=== PATIENT | male | born 1960 | race Caucasian/White ===

== ENCOUNTER 2020-02-18 03:13 | Inpatient (IN) | payer MEDICAID, OTHER ==
[~2020-02-18] VITALS: Ht 170.2 cm; Wt 80.8 kg
[~2020-02-18 03:13] MED LIST: ALBU8.5H4; AMLO2.5T2; ASPI-605 PO; ATOR10TA; CARV3.12; CLOP75TA15; FURO-145; NITR1OIN2
--- NOTE | 2020-02-18 03:28 | NUR ---
PT WAS ONESIMO 39 FROM [facility] FOR EVALUATION OF LOW O2 SATURATION FOR THE PAST TWO HOURS. PT FOUND W/ O2 SAT OF LOW 802 ON R/A, WAS PLACED ON A NON BREATHER MASK. PT ALERT AND VERBALLY RESPONSIVE TO QUESTIONS, HOWEVER SEEMS VERY LETHARGIC. W/ PMH OF ESRD ON HD TWICE A WEEK ON MONDAYSA Fridays VIA RC[facility] CATH. PT HAS REC'D HIS HD TODAY. PER EMS PT HAS TESTED + FOR COVID 19 AT THE FACILITY YESTERDAY. PT WAS TRANSFERRED TO BED 7, ON MONITOR AND SUPPLEMENTAL O2 VIA NON REBREATHER MASK. WILL CONT TO MONITOR,
[2020-02-18 03:56] LABS: BASOPHILS % (AUTO) 0.5 % (0.0-2.0); EOSINOPHILS % (AUTO) 0.2 % (0.0-6.0); HEMATOCRIT 22 % (39-51); LYMPHOCYTES # (AUTO) 0.7 /CMM (0.8-4.8); LYMPHOCYTES % (AUTO) 28.6 % (20.0-44.0); MEAN CORPUSCULAR HGB CONC 31 g/dl (31.0-36.0); MEAN CORPUSCULAR VOLUME 96 fL (80-96); MONOCYTES # (AUTO) 0.4 /CMM (0.1-1.30); MONOCYTES % (AUTO) 14.7 % (2.0-12.0); NEUTROPHILS # (AUTO) 1.4 /CMM (1.8-8.9); PLATELET COUNT (AUTO) 154 /CMM (150-450); RED BLOOD CELL COUNT(AUTO) 2.26 MIL/uL (4.5-6.0); WHITE BLOOD COUNT (AUTO) 2.4 K/uL (4.3-11.0)
--- NOTE | 2020-02-18 04:00 | NUR ---
pt aneuric, pt noted with elevated BNP. [facility] central service supply distributor aware. pt will have dialysis today.
[2020-02-18 04:02] LABS: CALCIUM, SERUM 8.1 mg/dL (8.5-10.1); CARBON DIOXIDE 29 mmol/L (21-32); CHLORIDE 104 mmol/L (98-107); CREATININE 2.5 mg/dL (0.6-1.3); GLUCOSE 160 mg/dL (74-106); SODIUM SERUM 141 mmol/L (136-145); UREA NITROGEN, BLOOD 31 mg/dL (7-18)
[2020-02-18] MEDS ORDERED: CARV12.5 PO (04:06)
[2020-02-18] MEDS ORDERED: FLUT1BLS IH (04:06)
[2020-02-18] MEDS ORDERED: LUBI24CA5 PO (04:06)
[2020-02-18] MEDS ORDERED: CALC-494 PO (04:06)
[2020-02-18] MEDS ORDERED: RANO10003 PO (04:07)
[2020-02-18] MEDS ORDERED: HYDR-4077 PO (04:07)
[2020-02-18] MEDS ORDERED: INSU100V7 SQ (04:07)
[2020-02-18] MEDS ORDERED: FERR325T28 PO (04:07)
[2020-02-18] MEDS ORDERED: OMEG1CAP74 PO (04:07)
[2020-02-18] MEDS ORDERED: PREG75CA PO (04:07)
[2020-02-18] MEDS ORDERED: FOLI0.8T41 PO (04:07)
[2020-02-18] MEDS ORDERED: ISOS20TA8 PO (04:07)
[2020-02-18] MEDS ORDERED: INSU100V42 SQ (04:07)
[2020-02-18] MEDS ORDERED: FOLI5VIA2 PO (04:07)
[2020-02-18] MEDS ORDERED: ATOR10TA PO (04:07)
[2020-02-18] MEDS ORDERED: EPOE1VIA7 SQ (04:07)
[2020-02-18 04:15] LABS: ALANINE AMINOTRANSFERASE 13 U/L (12-78); ALBUMIN 2.2 g/dL (3.4-5.0); ALKALINE PHOSPHATASE 99 U/L (46-116); ASPARTATE AMINOTRANSFERASE 18 U/L (15-37); BILIRUBIN,DIRECT 0.1 mg/dL (0.0-0.2); BILIRUBIN,TOTAL 0.3 mg/dL (0.2-1.0); TOTAL PROTEIN, SERUM 6.2 g/dL (6.4-8.2)
[2020-02-18 04:49] LABS: HEMOGLOBIN 6.7 g/dL (13.5-17.5)
[2020-02-18] MEDS ORDERED: ALBUTEROL SULFATE 8 GM HFA.AER.AD IH PRN (05:00)
[2020-02-18] MEDS ORDERED: ONDANSETRON HCL/PF 4 MG/2 ML VIAL IVP PRN (05:00)
[2020-02-18 05:47] LABS: BAND % (MANUAL) 4 % (0.0-5.0); LYMPHOCYTES % (MANUAL) 29 % (16-48); MONOCYTES % (MANUAL) 14 % (0-11.0); NEUTROPHILS % (MANUAL) 53 (42-76)
--- NOTE | 2020-02-18 05:52 | NUR ---
report given to shantelle kearns for sulaiman; pt will be transported to 1st floor
[2020-02-18] MEDS ORDERED: CEFEPIME 1 GM in IV D5W 50 ML IV SCH ×2 (06:00→08:00)
--- NOTE | 2020-02-18 06:34 | NUR ---
pt transported to 1st floor
--- NOTE | 2020-02-18 06:45 | NUR ---
RN NOTES, RECEIVED PATIENT FROM ER DEPARTMENT VIA STRETCHER IN COMPANY OF 2 NURSES, UNDER MEDICAL SERVICES ANTONIO YUNG DNP, WITH ADMITTING DX COVID 19 POSITIVE/PNA, ASLEEP, ALTER NO FOLLOWING COMMANDS, NO ACUTE RESPIRATORY DISTRESS NOTED, WITH VS UPON ADMISSION 105/66., 86, 21, 98, 98.5, ON NRM AT 10L, PREVIOUSLY IN ER 70%, WILL CONTINUE TO MONITOR AND ENDORSE TO ONCOMING NURSE, IV ACCESS LEFT HAND 20G PATENT AND INTACT, RCW PERM CATH FOR HD IN PLACE, WILL HAVE HD SOON POSSIBLE, AND BLOOD TRANSFUSION FOR LOW H&H, WILL ENDORSE TO ONCOMING NURSE FOR CONTINUATION IF CARE.
--- NOTE | 2020-02-18 07:40 | NUR ---
RECEIVED PATIENT IN BED. NO ACUTE DISTRESS NOTED. PATIENT LETHARGIC, NOT FOLLOW COMMANDS. PATIENT ON NRB MASK 10L, TOLERATING WELL. PATIENT ON HEATING AND VENTILATING WORKER, NSR NOTED. PATIENT LEFT HAND IV ACCESS INTACT, PATENT, FLUSHED WELL. PATIENT SAFETY MEASURES MAINTAINED. CALL LIGHT WITHIN REACH. WILL CONTINUE TO MONITOR.
[2020-02-18] MEDS ORDERED: CEFEPIME 2 GM in IV D5W 100 ML IV SCH (08:00)
[2020-02-18] MEDS ORDERED: AMIN30LI2 PO (08:11)
[2020-02-18] MEDS ORDERED: ASCO-352 PO (08:11)
[2020-02-18] MEDS ORDERED: FLUT16SP16 (08:11)
[2020-02-18] MEDS ORDERED: SACC250C PO (08:11)
[2020-02-18] MEDS ORDERED: NITR0.4T48 SL (08:11)
[2020-02-18] MEDS ORDERED: TRAM50TA2 PO (08:11)
[2020-02-18] MEDS ORDERED: IPRA12.9 IH (08:11)
[2020-02-18] MEDS ORDERED: INSU100V11 SQ (08:11)
[2020-02-18] MEDS ORDERED: SENN-261 PO (08:11)
[2020-02-18] MEDS ORDERED: ALBU8.5H8 IH (08:11)
[2020-02-18] MEDS ORDERED: POLY15DR40 EACHEYE (08:11)
[2020-02-18] MEDS ORDERED: ZINC1CAP2 PO (08:11)
[2020-02-18] MEDS ORDERED: ACET-868 PO (08:11)
[2020-02-18] MEDS ORDERED: FOLI0.4T2 PO (08:11)
[2020-02-18] MEDS: HEPARIN SODIUM, PORCINE 5000 UNITS/1 ML VIAL SQ SCH ×2 (09:00→21:00)
[2020-02-18] MEDS ORDERED: PANTOPRAZOLE 40 MG TABLET.DR PO SCH (09:00)
[2020-02-18] MEDS: DOXYCYCLINE HYCLATE (100 MG) 100 MG TABLET PO SCH ×2 (09:00→17:01)
[2020-02-18] MEDS: DEXAMETHASONE SOD PHOSPHATE 4 MG/ML VIAL IV SCH (09:25)
--- NOTE | 2020-02-18 09:35 | NUR ---
heparin held due to hgb 6.7. swallow eval ordered, so held po meds
--- NOTE | 2020-02-18 09:55 | NUR ---
RETOUCHER NOTES RECEIVED PT FROM DORIAN RN, PT IN BED, ALERT TO SELF AND VERBALLY RESPONSIVE, NO COMPLAINT OF PAIN, NOT IN DISTRESS, SLEEPY, EASY TO AROUSE, ON NON REBREATHER MASK, O2 SAT 99%, CALL LIGHT WITHIN REACH, KEPT WARM AND COMFORTABLE IN BED.
[2020-02-18] MEDS ORDERED: IPRATROPIUM BROMIDE 14 GM INHALER (or 12.9 GM) IH PRN (12:30)
[2020-02-18] MEDS ORDERED: SENNOSIDES 8.6 MG TABLET PO PRN (12:30)
[2020-02-18] MEDS ORDERED: ALBUTEROL SULFATE INH 18 GM HFA.AER.AD IH PRN (12:30)
[2020-02-18] MEDS ORDERED: NITROGLYCERIN 0.4 MG/TAB BOTTLE SL PRN (12:30)
[2020-02-18] MEDS: hydrALAZINE HCL 50 MG TABLET PO SCH ×2 (12:57→21:00)
[2020-02-18] MEDS: ISOSORBIDE DINITRATE (20MG) 20 MG TABLET PO SCH ×2 (12:58→17:03)
[2020-02-18] MEDS: PROSOURCE / PROSTAT (PYXIS) 30 ML UDC PO SCH ×2 (13:00→17:01)
[2020-02-18] MEDS ORDERED: PREGABALIN 25 MG CAPSULE PO SCH (14:00)
[2020-02-18 14:02] VITALS: BP 129/79
[2020-02-18 14:17] VITALS: BP 124/82
[2020-02-18 14:42] VITALS: BP 137/67
[2020-02-18 17:00] VITALS: BP 126/58
[2020-02-18] MEDS: FERROUS SULFATE (325 MG) 325 MG/TAB TABLET PO SCH (17:01)
[2020-02-18] MEDS: CARVEDILOL 12.5 MG TABLET PO SCH (17:03)
[2020-02-18] MEDS: FLUTICASONE PROPIONATE 16 GM BOTTLE NS SCH (17:04)
--- NOTE | 2020-02-18 18:21 | NUR ---
RN CLOSING NOTES PATIENT CURRENTLY RESTING IN BED. A&O X 1-2. NO C/O PAIN THIS SHIFT. O2 SAT IS 97% ON NON-REBREATHER MASK WITH NO S/S OF RESPIRATORY DISTRESS NOTED. PATIENT IS TELE WITH NSR. RIGHT HEEL WOUND ASSESSED AND DRESSING CHANGED. IV #20G TO LEFT HAND PATENT. PATIENT RECEIVED HEMODIALYSIS AND 1L PRBC FOR HGB OF 6.7. ASPIRATION, FALL, AND SAFETY PRECAUTIONS IN PLACE. CALL LIGHT WITHIN REACH. WILL CONTINUE TO MONITOR.
[2020-02-18] MEDS: CALCIUM CARBONATE 500 MG TAB.CHEW PO SCH (18:27)
[2020-02-18] MEDS: PREGABALIN 25 MG CAPSULE PO SCH (18:28)
[2020-02-18] MEDS: AZITHROMYCIN 250 MG TABLET PO SCH (18:30)
[2020-02-18] MEDS: ACETAMINOPHEN 325 MG TABLET PO PRN (19:38)
--- NOTE | 2020-02-18 19:40 | NUR ---
TELE/RN OPENING NOTES: RECEIVED PATIENT RESTING IN BED. A/O X 1-2. YELLING AND MOANING. O2 SAT IS 97% ON NON-REBREATHER MASK 15L. WITH NO S/S OF RESPIRATORY DISTRESS NOTED. PATIENT IS TELE WITH NSR. RIGHT HEEL WOUND DRESSING CHANGED. IV #20G TO LEFT HAND PATENT. PATIENT S/P HEMODIALYSIS AND 1L PRBC. SAFETY PRECAUTIONS IN PLACE. BED IN LOW, LOCKED POSITION WITH SR UPX2. CALL LIGHT WITHIN REACH. WILL CONTINUE TO MONITOR PT. ACCORDINGLY.
[2020-02-18] MEDS: CEFTRIAXONE 1 G in IV D5W 50 ML IV SCH (20:29)
[2020-02-18] MEDS: RANOLAZINE 500 MG TAB.ER.12H PO SCH (21:00)
[2020-02-18] MEDS: ATORVASTATIN 10 MG TABLET PO SCH (21:04)
[2020-02-18] MEDS: TRAMADOL HCL 50 MG TABLET PO PRN (21:15)
--- NOTE | 2020-02-18 21:15 | NUR ---
TELE/RN NOTES: PT COMPLAINING OF PAIN ON HIS RIGHT HEEL. 8/10 PAIN LEVEL. REQUESTED PAIN MED ULTRAM. ADMINSITERED ULTRAM 50MG FOR PAIN Q6HR. VSS. WILL CONTINUE TO MONITOR.
[2020-02-18 22:00] VITALS: BP 104/53
[2020-02-19] VITALS (7 sets, daily range): BP systolic 94–137; BP diastolic 49–63
[2020-02-19] MEDS: hydrALAZINE HCL 50 MG TABLET PO SCH ×3 (05:00→21:00)
--- NOTE | 2020-02-19 06:24 | NUR ---
TELE/RN CLOSING NOTES: PATIENT SLEEPING IN BED. A/O X 1-2. NO SIGNIFICANT CHANGES IN CONDITION. O2 SAT IS 99% ON NON-REBREATHER MASK. NO S/S OF RESPIRATORY DISTRESS NOTED. TELE READING NSR. RIGHT HEEL WOUND DRESSING CLEAN DRY AND INTACT. IV #20G TO LEFT HAND PATENT. SAFETY PRECAUTIONS IN PLACE. BED IN LOW, LOCKED POSITION WITH SR UPX2. CALL LIGHT WITHIN REACH. KEPT WARM AND DRY AT ALL TIMES. REPOSITIONED Q2HRS. ALL NURSING NEEDS MET AND RENDERED. WILL ENDORSED TO DAY SHIFT RN PLAN OF CARE AND LISSA.
[2020-02-19 07:08] LABS: BASOPHILS % (AUTO) 0.5 % (0.0-2.0); EOSINOPHILS % (AUTO) 1.1 % (0.0-6.0); HEMATOCRIT 25 % (39-51); LYMPHOCYTES # (AUTO) 0.6 /CMM (0.8-4.8); LYMPHOCYTES % (AUTO) 19.5 % (20.0-44.0); MEAN CORPUSCULAR HGB CONC 32 g/dl (31.0-36.0); MEAN CORPUSCULAR VOLUME 95 fL (80-96); MONOCYTES # (AUTO) 0.2 /CMM (0.1-1.30); MONOCYTES % (AUTO) 6.9 % (2.0-12.0); NEUTROPHILS # (AUTO) 2.1 /CMM (1.8-8.9); PLATELET COUNT (AUTO) 145 /CMM (150-450); RED BLOOD CELL COUNT(AUTO) 2.65 MIL/uL (4.5-6.0); WHITE BLOOD COUNT (AUTO) 2.9 K/uL (4.3-11.0)
[2020-02-19 07:25] LABS: ALBUMIN 2.4 g/dL (3.4-5.0); BILIRUBIN,TOTAL 0.5 mg/dL (0.2-1.0); CALCIUM, SERUM 8.3 mg/dL (8.5-10.1); CREATININE 2.7 mg/dL (0.6-1.3); POTASSIUM 3.8 mmol/L (3.5-5.1); TOTAL PROTEIN, SERUM 6.3 g/dL (6.4-8.2)
--- NOTE | 2020-02-19 07:50 | NUR ---
RN OPENING NOTE RECEIVED PATIENT IN BED WITH HOB AT SEMI FOWLERS POSITION. PATIENT IS AOX2. RECEIVING 15 L VIA NON REBREATHER MASK. PATIENT HAS A RIGHT HEEL WOUND. LHAND #20 AND RUC ARE PATENT, INTACT, AND HAVE NO SIGNS OF INFILTRATION. BED IS LOCKED IN THE LOWEST POSITION, 3 SIDE RAILS RAISED, CALL HART WITHIN REACH, AND ALL HOSPITAL SAFETY PRECAUTIONS ARE BEING FOLLOWED. WILL CONTINUE TO MONITOR THROUGHOUT SHIFT.
[2020-02-19] MEDS: ZINC SULFATE 220 MG CAPSULE PO SCH (08:13)
[2020-02-19] MEDS: FOLIC ACID 1 MG TABLET PO SCH (08:14)
[2020-02-19] MEDS: VIT B CMPLX 3/FA/VIT C/BIOTIN 1 TAB TABLET PO SCH (08:14)
[2020-02-19] MEDS: FLUTICASONE PROPIONATE 16 GM BOTTLE NS SCH ×2 (08:14→17:28)
[2020-02-19] MEDS: ISOSORBIDE DINITRATE (20MG) 20 MG TABLET PO SCH ×3 (08:32→18:37)
[2020-02-19] MEDS: FERROUS SULFATE (325 MG) 325 MG/TAB TABLET PO SCH ×2 (08:32→17:27)
[2020-02-19] MEDS: CARVEDILOL 12.5 MG TABLET PO SCH ×2 (08:32→18:36)
[2020-02-19] MEDS: PREGABALIN 25 MG CAPSULE PO SCH ×3 (08:33→17:27)
[2020-02-19] MEDS: FLUTICASONE/VILANTEROL 1 EACH BLST.W.DEV IH SCH (08:33)
[2020-02-19] MEDS: DEXAMETHASONE SOD PHOSPHATE 4 MG/ML VIAL IV SCH (08:33)
[2020-02-19] MEDS: HEPARIN SODIUM, PORCINE 5000 UNITS/1 ML VIAL SQ SCH ×2 (08:35→22:20)
--- NOTE | 2020-02-19 09:10 | NUR ---
END LATHE OPERATOR NOTE HEPARIN SODIUM HELD DUE TO LOW HGB/HEMATOCRIT. WILL CONTINUE TO MONITOR THROUGHOUT SHIFT.
[2020-02-19] MEDS: PANTOPRAZOLE 40 MG/PACK PACK PO SCH (09:56)
[2020-02-19] MEDS: CALCIUM CARBONATE 500 MG TAB.CHEW PO SCH ×2 (09:56→17:26)
[2020-02-19] MEDS: PROSOURCE / PROSTAT (PYXIS) 30 ML UDC PO SCH ×3 (10:11→17:32)
[2020-02-19] MEDS: RANOLAZINE 500 MG TAB.ER.12H PO SCH ×2 (10:13→22:12)
--- NOTE | 2020-02-19 10:27 | NUR ---
WOUND CARE CONSULT: REVIEWED CHART,NURSING DOCUMENTATION AND PHOTOS WHICH INDICATE DISCOLORATION TO SOME AREAS OF SKIN AND RT HEEL WOUND, PRESENT ON ADMISSION. RECOMMEND DPM CONSULT. DR MUHAMMAD NOTIFIED OF CONSULT REQUEST. RECOMMENDATIONS MADE FOR SKIN PROTECTION. DISCUSSED WITH NURSING STAFF. MD IN AGREEMENT WITH PLAN OF CARE.
[2020-02-19] MEDS ORDERED: Z GUARD REMEDY 2 OZ OINT TP PRN (10:30)
--- NOTE | 2020-02-19 11:08 | NUR ---
RN TELE1 SPOKE TO ISABELLA FROM [facility], SHE CALLED TO NOTIFY THAT THE PATIENT IS POSITIVE FOR MRSA IN THE NARES. ALREADY HAVE POSITIVE RESULTS FROM YESTERDAY MORNING. WILL FOLLOW UP WITH MD ON IF THEY WANT TO ORDER BACTROBAN.
[2020-02-19 12:18] LABS: BAND % (MANUAL) 9 % (0.0-5.0); EOSINOPHILS % (MANUAL) 1 % (0-4); LYMPHOCYTES % (MANUAL) 13 % (16-48); MONOCYTES % (MANUAL) 6 % (0-11.0); MYELOCYTES % 1 % (0-0); NEUTROPHILS % (MANUAL) 70 (42-76)
[2020-02-19] MEDS: Z GUARD REMEDY 2 OZ OINT TP SCH (13:37)
[2020-02-19] MEDS: ENSURE ENLIVE 237 ML LIQUID (VANILLA) PO SCH ×2 (13:38→17:00)
[2020-02-19] MEDS: EPOETIN ALFA (10,000 UNIT) 10,000 UNIT/ML VIAL SQ SCH ×2 (14:48→14:52)
[2020-02-19] MEDS: AZITHROMYCIN 250 MG TABLET PO SCH (18:35)
--- NOTE | 2020-02-19 18:49 | NUR ---
RN CLOSING NOTE PATIENT IS IN BED WITH HOB AT SEMI FOWLERS POSITION. PATIENT IS AOX1 AND RESTLESS. PATIENT IS ON 155L NRB. PATIENT HAS RIGHT HEEL WOUND. LHAND #20 AND RUC ARE PATENT, INTACT, AND HAVE NO SIGNS OF INFILTRATION. PATIENT HAS LOW HGB AND HCT. PATIENT'S BED IS LOCKED IN THE LOWEST POSITION, 3 SIDE RAILS RAISED, CALL HART WITHIN REACH, AND ALL HOSPITAL SAFETY PRECAUTIONS ARE BEING FOLLOWED. WILL ENDORSE TO TRUCK SHOP SUPERVISOR NURSE.
--- NOTE | 2020-02-19 19:30 | NUR ---
SHANK TAPPER OPENING NOTE RECEIVED PATIENT IN BED. A/OX 1-2. ON OXYGEN 15L/MIN VIA NONREBREATHER. RESPIRATIONS ARE EVEN AND UNLABORED. NO S/S SOB NOTED. NO S/S PAIN NOTED. EXTERNAL TELE MONITOR READS SINUS RHYTHM WITH INVERTED T WAVE HR 81. IN NO APPARENT DISTRESS. IV ACCESS IN LEFT HAND#20 PATENT AND SALINE LOCKED. RCW HD CATH PRESENT. BED I SLOW AND LOCKED, HOB ELEVATED IN SEMI FOWLERS, SIDE RAILS UP X3. CALL LIGHT WITHIN REACH. WILL CONTINUE TO MONITOR THROUGHOUT SHIFT.
[2020-02-19] MEDS: CEFTRIAXONE 1 G in IV D5W 50 ML IV SCH (20:10)
[2020-02-19] MEDS: ATORVASTATIN 10 MG TABLET PO SCH (22:12)
--- NOTE | 2020-02-19 22:25 | NUR ---
telecommunications clerk note discussed with rn dischargeMAYA Marsh about heparin. h/h is 09/30. plt 145. coags ok. no s/s bleeding at this time. no procedures scheduled at this time.
[2020-02-20] VITALS (7 sets, daily range): BP systolic 100–139; BP diastolic 49–66
[2020-02-20] MEDS: hydrALAZINE HCL 50 MG TABLET PO SCH ×3 (05:00→21:11)
--- NOTE | 2020-02-20 06:26 | NUR ---
SAFETY ATTENDANT CLOSING NOTE PATIENT RESTING IN BED. A/OX 1. PATIENT JUST SCREAMS RANDOMLY. DOESNT EXPLAIN HIS NEEDS OR ANSWER QUESTIONS. REMAINS ON OXYGEN 15L/MIN VIA NONREBREATHER.NO RESP DISTRESS. NO PAIN NOTED. TELE MONITOR READS SINUS RHYTHM. NO DISTRESS. IV ACCESS MAINTAINED IN LEFT HAND#20. RCW HD CATH MAINTAINED. BED REMAINS LOW AND LOCKED, HOB ELEVATED IN SEMI FOWLERS, SIDE RAILS UP X3. CALL LIGHT WITHIN REACH. WILL ENDORSE TO NEXT SHIFT.
[2020-02-20 08:06] LABS: CALCIUM, SERUM 8.1 mg/dL (8.5-10.1); CREATININE 3.2 mg/dL (0.6-1.3); POTASSIUM 4.4 mmol/L (3.5-5.1)
[2020-02-20 08:22] LABS: BASOPHILS % (AUTO) 0.3 % (0.0-2.0); HEMATOCRIT 24 % (39-51); HEMOGLOBIN 7.4 g/dL (13.5-17.5); LYMPHOCYTES # (AUTO) 0.4 /CMM (0.8-4.8); LYMPHOCYTES % (AUTO) 15.9 % (20.0-44.0); MEAN CORPUSCULAR HGB CONC 31 g/dl (31.0-36.0); MEAN CORPUSCULAR VOLUME 94 fL (80-96); MONOCYTES # (AUTO) 0.2 /CMM (0.1-1.30); MONOCYTES % (AUTO) 7.5 % (2.0-12.0); NEUTROPHILS # (AUTO) 1.7 /CMM (1.8-8.9); NEUTROPHILS % (AUTO) 76.3 % (43.0-81.0); PLATELET COUNT (AUTO) 123 /CMM (150-450); RED BLOOD CELL COUNT(AUTO) 2.52 MIL/uL (4.5-6.0); WHITE BLOOD COUNT (AUTO) 2.3 K/uL (4.3-11.0)
[2020-02-20] MEDS: CARVEDILOL 12.5 MG TABLET PO SCH ×2 (09:00→16:46)
[2020-02-20] MEDS: ISOSORBIDE DINITRATE (20MG) 20 MG TABLET PO SCH ×3 (09:00→16:46)
[2020-02-20] MEDS: HEPARIN SODIUM, PORCINE 5000 UNITS/1 ML VIAL SQ SCH ×2 (09:00→21:00)
[2020-02-20] MEDS: HYDROGEL DRESSING 90 GM TUBE TP SCH (09:00)
[2020-02-20] MEDS: PREGABALIN 25 MG CAPSULE PO SCH ×3 (09:14→16:49)
[2020-02-20] MEDS: VIT B CMPLX 3/FA/VIT C/BIOTIN 1 TAB TABLET PO SCH (09:14)
[2020-02-20] MEDS: PANTOPRAZOLE 40 MG/PACK PACK PO SCH (09:14)
[2020-02-20] MEDS: FERROUS SULFATE (325 MG) 325 MG/TAB TABLET PO SCH ×2 (09:14→16:49)
[2020-02-20] MEDS: ZINC SULFATE 220 MG CAPSULE PO SCH (09:15)
[2020-02-20] MEDS: CALCIUM CARBONATE 500 MG TAB.CHEW PO SCH ×2 (09:15→16:49)
[2020-02-20] MEDS: DEXAMETHASONE SOD PHOSPHATE 4 MG/ML VIAL IV SCH (09:16)
[2020-02-20] MEDS: FOLIC ACID 1 MG TABLET PO SCH (09:16)
[2020-02-20] MEDS: RANOLAZINE 500 MG TAB.ER.12H PO SCH ×2 (09:17→21:29)
[2020-02-20] MEDS: FLUTICASONE/VILANTEROL 1 EACH BLST.W.DEV IH SCH (09:19)
[2020-02-20] MEDS: FLUTICASONE PROPIONATE 16 GM BOTTLE NS SCH ×2 (09:19→16:50)
[2020-02-20] MEDS: PROSOURCE / PROSTAT (PYXIS) 30 ML UDC PO SCH ×3 (09:19→16:47)
[2020-02-20] MEDS: Z GUARD REMEDY 2 OZ OINT TP SCH (09:20)
[2020-02-20] MEDS ORDERED: NEPRO VAN 237 ML CAN PO PRN (11:00)
--- NOTE | 2020-02-20 11:00 | NUR ---
DUST MILL OPERATOR NOTES PATIENT APPEARS AGITATED. REMOVING NONREBREATHER MASK AND IV LINES. PATIENT ALSO NOTED TRYING TO STAND UP. ORDERS OBTAINED FROM DR. RUBIN FOR BILT. SOFT WRIST RESTRAINTS. PATIENT PLACED ON RESTRAINTS FOR SAFETY. WILL CONTINUE OT MONITOR.
[2020-02-20] MEDS: AZITHROMYCIN 250 MG TABLET PO SCH (18:21)
--- NOTE | 2020-02-20 18:22 | NUR ---
INFORMATION SYSTEMS OPERATOR NOTES PATIENT IN BED SLEEPING. NO SOB OR ACUTE DISTRESS NOTED. PATIENT SWITCHED TO SIMPLE MASK 10L. TOLERATING IT WELL. PERIPHERAL IV INTACT PATENT. PATIENT RESTRAINED DUE TO SAFETY. PATIENT COMPLETED HD IN THE AM TOLERATED WELL. ALL DUE MEDICATIONS ADMINISTERED. ALL NEEDS METE. WILL ENDORSE CARE TO PM SHIFT.
--- NOTE | 2020-02-20 19:40 | NUR ---
TEST PREPARATION TUTOR NOTES PATIENT IN BED, ASLEEP, EASILY AROUSED. BREATHING EVEN AND UNLABORED ON 10L MASK. SHOWS NO SIGNS OF ACUTE RESPIRATORY DISTRESS. NO ACUTE PAIN. TELE MONITOR SR. SOFT BILATERAL RESTRAINTS APPLIED, PT REMOVING LINE AND UNCOOPERATIVE OF CARE. NO S/S OF SKIN BREAKDOWN AND NO POOR CIRCULATION. IV ON L HAND 20G SL. ITS CLEAN DRY AND INTACT. FLUSHING WELL. SHOWS NO SIGNS OF INFILTRATION, NO REDNESS. SAFETY PRECAUTIONS IN PLACE. BED IN LOWEST POSITION, LOCKED, AND CALL LIGHT KEPT WITHIN REACH. WILL CONTINUE TO MONITOR.
[2020-02-20] MEDS: CEFTRIAXONE 1 G in IV D5W 50 ML IV SCH (20:36)
--- NOTE | 2020-02-20 21:00 | NUR ---
DIGITAL SALES PLANNER NOTES HELD HEPARIN DOSE, PT H/H DROPPED FROM 8.0 TO 7.3
[2020-02-20] MEDS: ATORVASTATIN 10 MG TABLET PO SCH (21:11)
[2020-02-20] MEDS: MUPIROCIN OINT 2% 22 GM TUBE NS SCH (21:12)
[2020-02-20] MEDS ORDERED: RANOLAZINE 500 MG TAB.ER.12H PO ONE (21:23)
[2020-02-21] VITALS (8 sets, daily range): BP systolic 111–156; BP diastolic 53–71
[2020-02-21] MEDS: TRAMADOL HCL 50 MG TABLET PO PRN (00:17)
--- NOTE | 2020-02-21 00:17 | NUR ---
PHOTOENGRAVING SKETCH MAKER NOTES PATIENT APPEARS TO BE UNCOMFORTABLE KICKING AND YELLING. GIVEN PRN TRAMADOL FOR PAIN RELIEF. WILL CONTINUE TO MONITOR.
--- NOTE | 2020-02-21 03:00 | NUR ---
LINEMARKER NOTES PATIENT VERY AGITATED CONTINUOUSLY SCREAMING AND KICKING. RECEIVED ORDER FOR ATIVAN. GIVEN PRN DOSE OF ATIVAN. VITAL SIGNS WNL. WILL CONTINUE TO MONITOR
[2020-02-21] MEDS: LORAZEPAM INJ 2 MG/ML VIAL IV PRN (03:13)
[2020-02-21] MEDS: hydrALAZINE HCL 50 MG TABLET PO SCH ×3 (04:17→21:37)
--- NOTE | 2020-02-21 06:34 | NUR ---
RESIDENTIAL THERAPIST NOTES PATIENT IN BED, ASLEEP, EASILY AROUSED. BREATHING EVEN AND UNLABORED ON 10L MASK. SHOWS NO SIGNS OF ACUTE RESPIRATORY DISTRESS. NO ACUTE PAIN. TELE MONITOR SR. SOFT BILATERAL RESTRAINTS APPLIED,NO S/S OF SKIN BREAKDOWN AND NO POOR CIRCULATION. IV ON L HAND 20G SL. ITS CLEAN DRY AND INTACT. FLUSHING WELL. SHOWS NO SIGNS OF INFILTRATION, NO REDNESS. ALL DUE MEDICATIONS GIVEN. ALL NEEDS ATTENDED TO. SAFETY PRECAUTIONS IN PLACE. BED IN LOWEST POSITION, LOCKED, AND CALL LIGHT KEPT WITHIN REACH. WILL ENDORSE TO ONCOMING NURSE.
[2020-02-21 07:10] LABS: BASOPHILS % (AUTO) 0.2 % (0.0-2.0); HEMATOCRIT 23 % (39-51); HEMOGLOBIN 7.3 g/dL (13.5-17.5); LYMPHOCYTES # (AUTO) 0.4 /CMM (0.8-4.8); LYMPHOCYTES % (AUTO) 12.8 % (20.0-44.0); MEAN CORPUSCULAR HGB CONC 31 g/dl (31.0-36.0); MEAN CORPUSCULAR VOLUME 94 fL (80-96); MONOCYTES # (AUTO) 0.1 /CMM (0.1-1.30); MONOCYTES % (AUTO) 4.2 % (2.0-12.0); NEUTROPHILS # (AUTO) 2.7 /CMM (1.8-8.9); NEUTROPHILS % (AUTO) 82.8 % (43.0-81.0); PLATELET COUNT (AUTO) 152 /CMM (150-450); RED BLOOD CELL COUNT(AUTO) 2.49 MIL/uL (4.5-6.0); WHITE BLOOD COUNT (AUTO) 3.2 K/uL (4.3-11.0)
[2020-02-21 07:13] LABS: CALCIUM, SERUM 8.3 mg/dL (8.5-10.1); CREATININE 3.7 mg/dL (0.6-1.3); POTASSIUM 4.6 mmol/L (3.5-5.1)
--- NOTE | 2020-02-21 07:30 | NUR ---
TELE/RN OPENING NOTE Received patient resting in bed, A&O x 1, moans upon tactile and verbal stimulation. No s/s of pain/discomfort at this time. Breathing even and non-labored on 10 L via face mask. No respiratory or cardiac distress noted. On tele monitor reading SR with inverted T wave 92. IV access noted on L hand #20g SL. Bilateral soft wrist restraints noted, circulation, skin, and sensation from both upper extremities intact. Bed locked to its lowest position, side rails x 2 up, call light in hand. Will continue with current medical management.
[2020-02-21] MEDS: HEPARIN SODIUM, PORCINE 5000 UNITS/1 ML VIAL SQ SCH ×2 (09:00→21:54)
[2020-02-21] MEDS: RANOLAZINE 500 MG TAB.ER.12H PO SCH ×2 (09:08→21:38)
[2020-02-21] MEDS: DEXAMETHASONE SOD PHOSPHATE 4 MG/ML VIAL IV SCH (09:11)
[2020-02-21] MEDS: PANTOPRAZOLE 40 MG/PACK PACK PO SCH (09:11)
[2020-02-21] MEDS: CALCIUM CARBONATE 500 MG TAB.CHEW PO SCH ×2 (09:11→16:49)
[2020-02-21] MEDS: FERROUS SULFATE (325 MG) 325 MG/TAB TABLET PO SCH ×2 (09:12→16:44)
[2020-02-21] MEDS: VIT B CMPLX 3/FA/VIT C/BIOTIN 1 TAB TABLET PO SCH (09:12)
[2020-02-21] MEDS: FOLIC ACID 1 MG TABLET PO SCH (09:12)
[2020-02-21] MEDS: ACETAMINOPHEN 325 MG TABLET PO PRN (09:12)
[2020-02-21] MEDS: ZINC SULFATE 220 MG CAPSULE PO SCH (09:12)
[2020-02-21] MEDS: ISOSORBIDE DINITRATE (20MG) 20 MG TABLET PO SCH ×3 (09:13→16:45)
[2020-02-21] MEDS: CARVEDILOL 12.5 MG TABLET PO SCH ×2 (09:13→16:44)
[2020-02-21] MEDS: PREGABALIN 25 MG CAPSULE PO SCH ×3 (09:13→16:44)
[2020-02-21] MEDS: Z GUARD REMEDY 2 OZ OINT TP SCH (09:14)
[2020-02-21] MEDS: PROSOURCE / PROSTAT (PYXIS) 30 ML UDC PO SCH ×3 (09:14→16:47)
[2020-02-21] MEDS: HYDROGEL DRESSING 90 GM TUBE TP SCH (09:14)
[2020-02-21] MEDS: MUPIROCIN OINT 2% 22 GM TUBE NS SCH ×2 (09:17→21:35)
--- NOTE | 2020-02-21 09:30 | NUR ---
TELE/RN NOTE TEMP NOTED AT 99.1, ADMINISTERED TYLENOL AND COOLING MEASURES RENDERED
[2020-02-21] MEDS: FLUTICASONE/VILANTEROL 1 EACH BLST.W.DEV IH SCH (09:46)
[2020-02-21] MEDS: FLUTICASONE PROPIONATE 16 GM BOTTLE NS SCH ×2 (09:46→17:00)
--- NOTE | 2020-02-21 10:00 | NUR ---
TELE/RN NOTE ENDORSED TO YAQUELIN TREJO FOR LISSA
--- NOTE | 2020-02-21 10:45 | NUR ---
TELE/RN NOTE NOTICED ST RECOMMENDATION'S FOR DIET TEXTURE. ST RECOMMENDS PATIENT ON PUREED DIET, NOTIFIED DR RUBIN, ORDERS TO CHANGE DIET TEXTURE TO PUREE. ORDERS CARRIED OUT
--- NOTE | 2020-02-21 12:42 | NUR ---
RECEIVED ORDERS FROM DR PAREDES FOR ULTRA SOUND GUIDED THORACENTESIS RIGHT LUNG, ORDERS READ BACK AND ORDERED. WILL CONTINUE WITH PLAN OF CARE
--- NOTE | 2020-02-21 12:59 | NUR ---
spoke to RN/ [facility] , consent pending, no PAPR available, she will look for it. per Dr. Gomez the procedure will be done tomorrow.
--- NOTE | 2020-02-21 13:47 | NUR ---
RELEASED RESTRAINTS AT THIS TIME, SKIN IS INTACT, GOOD CIRCULATION NOTED, PULSES PRESENT BILATERALLY, CAPILLARY REFILL<3SECONDS. WILL CONTINUE TO MONITOR
[2020-02-21] MEDS: EPOETIN ALFA (10,000 UNIT) 10,000 UNIT/ML VIAL SQ SCH (14:59)
--- NOTE | 2020-02-21 15:30 | NUR ---
PT SCHEDULED FOR ULTRA SOUND GUIDED THORACENTESIS OF THE RIGHT LUNG. TELEPHONE CONSENT OBTAINED FROM [facility] ([phone]), PT'S BROTHER, WITNESSED BY ANOTHER NURSE MAYA DIAZ. CONSENT FILED IN CHART. WILL CONTINUE TO MONITOR
[2020-02-21] MEDS: AZITHROMYCIN 250 MG TABLET PO SCH (18:29)
--- NOTE | 2020-02-21 18:42 | NUR ---
PT S/P ULTRA SOUND GUIDED THORACENTESIS OF THE RIGHT LUNG. 2LITRES PLEURAL FLUID OUT AND SEND TO LAB/PATHOLOGY. RECEIVED ORDERS FROM DR RUBIN FOR LDH, TOTAL PROTEIN CELL, GRAM STAIN, CULTURE AND AFB. ORDERS CARRIED OUT. WILL CONTINUE TO MONITOR
--- NOTE | 2020-02-21 19:00 | NUR ---
RN CLOSING NOTES PT AWAKE IN BED AT THIS TIME. PT REMAINED STABLE THROUGHOUT SHIFT. ALL CARE, NEED, MEDICATIONS AND TREATMENT ADMINISTERED ANTICIPATED PER ORDER. PT KEPT CLEAN AND DRY. WOUND CARE PROVIDED PER ORDER. RESTRAINTS ASSESSED Q2HR AND PRN, GOOD CIRCULATION NOTED, PULSES PRESENT BILATERALLY, CAPILLARY REFILL <3SECONDS. ASPIRATION AND SAFETY PRECAUTION IN PLACE AND MAINTAINED AT ALL TIMES. BED IN LOWEST LOCKED POSITION, HOB ELEVATED, SIDE RAILS UP X 2, CALL LIGHT AND TABLE WITHIN REACH. ENDORSED TO OFFICE CLERK NURSE FOR LISSA
--- NOTE | 2020-02-21 19:30 | NUR ---
RN NOTE RECEIVED PATIENT IN BED, ON SEMI MANZANO'S, CONFUSED. PATIENT'S BREATHING IS EVEN AND UNLABORED. PATIENT IS ON 10 L OF OXYGEN VIA OXYGEN MASK, TOLERATING WELL, SATURATING AT 100%. PATIENT SR ON THE MONITOR WITH INVERTED T WAVES, HR IS 77. NOTED IV SITE L HAND 20G, PATENT AND FLUSHING WELL, NO S/S OF INFECTION OR INFILTRATION. PATIENT ON SOFT WRIST RESTRAINTS AT B WRISTS. SAFETY MEASURES IMPLEMENTED PER PROTOCOL. PATIENT BED ALARM IS ON. HEAD OF BED ELEVATED. BED IS LOCKED, IN LOWEST POSITION AND SIDE RAILS UP. CALL LIGHT WITHIN REACH OF THE PATIENT. WILL CONTINUE TO MONITOR AND REASSESS FOR ANY CHANGES.
[2020-02-21] MEDS: CEFTRIAXONE 1 G in IV D5W 50 ML IV SCH (20:57)
[2020-02-21] MEDS: ATORVASTATIN 10 MG TABLET PO SCH (21:38)
[2020-02-22] MEDS: hydrALAZINE HCL 50 MG TABLET PO SCH ×3 (05:37→21:52)
--- NOTE | 2020-02-22 07:30 | NUR ---
SPEECH PATHOLOGIST NOTES PATIENT RECEIVED IN BED RESTING, ALERT AND ORIENTED X 1 CONFUSED, ON SIMPLE FACE MASK, 10 LITERS TOLERATING WELL WITH NO RESPIRATORY DISTRESS NOTED WITH SPO2 @ 100%, WILL TITRATE PATIENT TO NASAL CANNULA 6 LITERS WITH BREATHING EVEN NON-LABORED. ON ENVIRONMENTAL SERVICES TECH. BILATERAL SOFT WRIST RESTRAINTS IN PLACE, ADEQUATE SKIN CIRCULATION NOTED, Q15 MIN VISUAL CHECKS DONE. IV ACCESS INTACT AND PATENT. SAFETY PRECAUTIONS IMPLEMENTED WITH BED LOCKED BILATERAL SIDE RAILS UP, AND CALL LIGHT WITHIN EASY REACH. WILL CONTINUE TO MONITOR PATIENT.
[2020-02-22 08:00] VITALS: BP 115/51
[2020-02-22] MEDS: ZINC SULFATE 220 MG CAPSULE PO SCH (08:11)
[2020-02-22] MEDS: CALCIUM CARBONATE 500 MG TAB.CHEW PO SCH ×2 (08:12→17:07)
[2020-02-22] MEDS: DEXAMETHASONE SOD PHOSPHATE 4 MG/ML VIAL IV SCH (08:12)
[2020-02-22] MEDS: VIT B CMPLX 3/FA/VIT C/BIOTIN 1 TAB TABLET PO SCH (08:12)
[2020-02-22] MEDS: PANTOPRAZOLE 40 MG/PACK PACK PO SCH (08:12)
[2020-02-22] MEDS: PREGABALIN 25 MG CAPSULE PO SCH ×3 (08:12→17:08)
[2020-02-22] MEDS: Z GUARD REMEDY 2 OZ OINT TP SCH (08:13)
[2020-02-22] MEDS: FOLIC ACID 1 MG TABLET PO SCH (08:13)
[2020-02-22] MEDS: FERROUS SULFATE (325 MG) 325 MG/TAB TABLET PO SCH ×2 (08:13→17:08)
[2020-02-22] MEDS: HEPARIN SODIUM, PORCINE 5000 UNITS/1 ML VIAL SQ SCH ×2 (08:17→21:50)
[2020-02-22] MEDS: RANOLAZINE 500 MG TAB.ER.12H PO SCH ×2 (08:18→21:50)
[2020-02-22] MEDS: PROSOURCE / PROSTAT (PYXIS) 30 ML UDC PO SCH ×3 (08:20→17:28)
[2020-02-22] MEDS: HYDROGEL DRESSING 90 GM TUBE TP SCH (08:20)
[2020-02-22] MEDS: FLUTICASONE PROPIONATE 16 GM BOTTLE NS SCH ×2 (08:20→17:28)
[2020-02-22] MEDS: ISOSORBIDE DINITRATE (20MG) 20 MG TABLET PO SCH ×3 (08:21→17:21)
[2020-02-22] MEDS: CARVEDILOL 12.5 MG TABLET PO SCH ×2 (08:22→17:21)
[2020-02-22] MEDS: FLUTICASONE/VILANTEROL 1 EACH BLST.W.DEV IH SCH (08:31)
[2020-02-22] MEDS: MUPIROCIN OINT 2% 22 GM TUBE NS SCH ×2 (08:32→21:59)
--- NOTE | 2020-02-22 10:50 | NUR ---
QUALITY ASSURANCE MONITOR NOTES INFORMED DR. RUBIN D-DIMER RESULTS OF 2.39. NO NEW ORDERS MADE AT THIS TIME WILL CONTINUE TO MONITOR PATIENT.
[2020-02-22 12:00] VITALS: BP 123/55
[2020-02-22] MEDS: LORAZEPAM INJ 2 MG/ML VIAL IV PRN (12:10)
[2020-02-22 16:00] VITALS: BP 124/74
[2020-02-22 16:09] LABS: *HIV-1 RNA BY PCR <20 copies/mL (.)
[2020-02-22] MEDS: AZITHROMYCIN 250 MG TABLET PO SCH (17:31)
--- NOTE | 2020-02-22 18:26 | NUR ---
BRAND REPRESENTATIVE NOTES PATIENT IN BED RESTING, YELLING OCCASIONALLY, ALERT AND ORIENTED X 1 CONFUSED, ON NASAL CANNULA 6 LITERS WITH BREATHING EVEN NON-LABORED AND NO RESPIRATORY DISTRESS PRESENT AT THIS TIME. ON BLOCK SAWYER. BILATERAL SOFT WRIST RESTRAINTS IN PLACE, ADEQUATE SKIN CIRCULATION NOTED, Q15 MIN VISUAL CHECKS DONE. IV ACCESS INTACT AND PATENT. SAFETY PRECAUTIONS IMPLEMENTED WITH BED LOCKED, BED ALARM ON, BILATERAL SIDE RAILS UP, BED IN THE LOWEST POSITION AND CALL LIGHT WITHIN EASY REACH. WILL ENDORSE PLAN OF CARE TO UPCOMING RN. Addendum: 02/22/20 at 1829 by SILVIA COUCH RN BRAND REPRESENTATIVE NOTES PATIENT IN BED RESTING, YELLING OCCASIONALLY, ALERT AND ORIENTED X 1 CONFUSED, ON NASAL CANNULA 6 LITERS WITH BREATHING EVEN NON-LABORED AND NO RESPIRATORY DISTRESS PRESENT AT THIS TIME. ON BLOCK SAWYER. BILATERAL SOFT WRIST RESTRAINTS IN PLACE, ADEQUATE SKIN CIRCULATION NOTED, Q15 MIN VISUAL CHECKS DONE. IV ACCESS INTACT AND PATENT. MET ALL OF PATIENT'S NEEDS. SAFETY PRECAUTIONS IMPLEMENTED WITH BED LOCKED, BED ALARM ON, BILATERAL SIDE RAILS UP, BED IN THE LOWEST POSITION AND CALL LIGHT WITHIN EASY REACH. WILL ENDORSE PLAN OF CARE TO UPCOMING RN.
[2020-02-22] MEDS: CEFTRIAXONE 1 G in IV D5W 50 ML IV SCH (19:52)
[2020-02-22 20:07] VITALS: BP 160/52
[2020-02-22] MEDS: ATORVASTATIN 10 MG TABLET PO SCH (21:51)
[2020-02-23] MEDS: LORAZEPAM INJ 2 MG/ML VIAL IV PRN (01:34)
[2020-02-23 02:01] VITALS: BP 103/51
[2020-02-23 04:45] VITALS: BP 97/57
[2020-02-23] MEDS: hydrALAZINE HCL 50 MG TABLET PO SCH ×2 (04:45→12:51)
--- NOTE | 2020-02-23 04:47 | NUR ---
PATIENT CONFUSED AND ORIENTATED ONLY TO HIMSELF INCONTINENT STOOL AND URINES hd CATH RIGHT C/ WITH cdi dressing during the night pt was good about taking milk and juice small sips at a time when offered. aspiration precautions. sats running 94 -97% om 6 l;iters nc restraints on dt he will remove his 02, or swing at the nurse w/o the restraints. reapplied when nurse is to leave the room off when the nurse is in the wrist restraionts on when the nurse needs to leave the room, wearing them now . kept clean and dry continues to urinate large amounts. afebrile this 12 hours
--- NOTE | 2020-02-23 07:46 | NUR ---
HAIR OR BEAUTY SALON MANAGER NOTES PATIENT RECEIVED IN BED RESTING, YELLING OCCASIONALLY, ALERT AND ORIENTED X 1 CONFUSED, ON NASAL CANNULA 5 LITERS WITH BREATHING EVEN NON-LABORED AND NO RESPIRATORY DISTRESS PRESENT AT THIS TIME. ON TEST INSPECTION ENGINEER. BILATERAL SOFT WRIST RESTRAINTS IN PLACE, ADEQUATE SKIN CIRCULATION NOTED, Q15 MIN VISUAL CHECKS DONE. IV ACCESS INTACT AND PATENT. PATIENT PRESENTING WITH NO PAIN OR DISCOMFORT AT THIS TIME. SAFETY PRECAUTIONS IMPLEMENTED WITH BED LOCKED, BED ALARM ON, BILATERAL SIDE RAILS UP, BED IN THE LOWEST POSITION AND CALL LIGHT WITHIN EASY REACH. WILL CONTINUE TO MONITOR PATIENT.
[2020-02-23 08:00] VITALS: BP 116/62
[2020-02-23] MEDS: DEXAMETHASONE SOD PHOSPHATE 4 MG/ML VIAL IV SCH (09:16)
[2020-02-23] MEDS: FERROUS SULFATE (325 MG) 325 MG/TAB TABLET PO SCH (09:16)
[2020-02-23] MEDS: CALCIUM CARBONATE 500 MG TAB.CHEW PO SCH (09:16)
[2020-02-23] MEDS: PREGABALIN 25 MG CAPSULE PO SCH ×2 (09:16→12:52)
[2020-02-23] MEDS: FOLIC ACID 1 MG TABLET PO SCH (09:16)
[2020-02-23] MEDS: VIT B CMPLX 3/FA/VIT C/BIOTIN 1 TAB TABLET PO SCH (09:16)
[2020-02-23] MEDS: RANOLAZINE 500 MG TAB.ER.12H PO SCH (09:17)
[2020-02-23] MEDS: ZINC SULFATE 220 MG CAPSULE PO SCH (09:17)
[2020-02-23] MEDS: PANTOPRAZOLE 40 MG/PACK PACK PO SCH (09:17)
[2020-02-23] MEDS: FLUTICASONE PROPIONATE 16 GM BOTTLE NS SCH (09:30)
[2020-02-23] MEDS: Z GUARD REMEDY 2 OZ OINT TP SCH (09:30)
[2020-02-23] MEDS: HYDROGEL DRESSING 90 GM TUBE TP SCH (09:30)
[2020-02-23] MEDS: CARVEDILOL 12.5 MG TABLET PO SCH (09:31)
[2020-02-23] MEDS: ISOSORBIDE DINITRATE (20MG) 20 MG TABLET PO SCH ×2 (09:31→12:51)
[2020-02-23] MEDS: PROSOURCE / PROSTAT (PYXIS) 30 ML UDC PO SCH ×2 (09:31→12:57)
[2020-02-23] MEDS: FLUTICASONE/VILANTEROL 1 EACH BLST.W.DEV IH SCH (09:35)
[2020-02-23] MEDS: MUPIROCIN OINT 2% 22 GM TUBE NS SCH (09:35)
[2020-02-23] MEDS: HEPARIN SODIUM, PORCINE 5000 UNITS/1 ML VIAL SQ SCH (10:19)
[2020-02-23] MEDS ORDERED: METH4TAB3 PO (10:31)
[2020-02-23 12:00] VITALS: BP 91/50
--- NOTE | 2020-02-23 12:45 | NUR ---
REGIONAL SALES EXECUTIVE NOTES CORRECTIONAL CASE RECORDS SUPERVISOR AT BEDSIDE, HELD ALL BP MEDICATIONS, WILL CONTINUE TO MONITOR PATIENT.
--- NOTE | 2020-02-23 14:20 | NUR ---
AIRPORT ATTENDANT NOTES HEMODIALYSIS FINISHED NO OUTPUT STATED BY SAMPLE PREPARATION SUPERVISOR. WILL CONTINUE TO MONITOR PATIENT.
--- NOTE | 2020-02-23 15:40 | NUR ---
Code blue for the patient pulseless electrical activity CPR was in progress CPR was continued for multiple rounds, pulse check was performed with noted PEA activity pronounced at 1540 by ER . Primary MD notified ,nursing microwave supervisor marry and ER adm was notified as well. Erick Tyson [phone] left message waiting for returning call back [facility] was notified case # [id number]
--- NOTE | 2020-02-23 15:40 | NUR ---
RN NOTES PATIENT FOUND UNRESPONSIVE TO STERNAL RUB 1530, CODE BLUE INITIATED AND CPR STARTED DUE TO PATIENT PULSELESS ELECTRICAL ACTIVITY. CPR WAS IN PROGRESS FOR MULTIPLE ROUNDS, AND PULSE WAS CHECKED WITH MD AT BEDSIDE, DR RAYMOND. PATIENT WAS PRONOUNCED AT 1540 BY ER MD, DR. RAYMOND. HOSPITALIST DR. RUBIN NOTIFIED, NURSING CLOTH HANDLER NOTIFIED, RAMIRZE, AND ER ADMIT NOTIFIED. CALLED [facility], , NOTIFIED AND CASE NUMBER [id number]. CALLED PATIENT'S BROTHER, OMAIRA BORJA , LEFT MESSAGE, AWAITING FOR CALL BACK.
--- NOTE | 2020-02-23 16:50 | NUR ---
post mortum given
[2020-02-23] MEDS ORDERED: EPINEPHRINE (1:10,000) SYRINGE 1 MG/10 ML DISP.SYRIN IVP ONE (17:02)
[2020-02-23] MEDS ORDERED: FEE EMEERGENCY 1 MIN EA MC ONE (17:02)
[2020-02-23] MEDS ORDERED: SODIUM BICARBONATE SYR 50 MEQ/50 ML DISP.SYRIN IV ONE (17:02)
--- NOTE | 2020-02-23 17:30 | NUR ---
To morgue with patient's belongings dentures and watch.
== END 2020-02-23 16:00 | disposition expired | DRG 137 ==
LOC: ER 03:15 → TRANSITION 05:21 → TELE1 05:46
PROVIDERS: ADMIT Internal Medicine; ATTEND Internal Medicine
PROC: 30233N1 Transfusion of Nonautologous Red Blood Cells into Peripheral Vein, Percutaneous Approach (ICD-10-PCS; principal; 2020-02-18)
PROC: 5A1D70Z Performance of Urinary Filtration, Intermittent, Less than 6 Hours Per Day (ICD-10-PCS; 2020-02-18)
PROC: 0W993ZZ Drainage of Right Pleural Cavity, Percutaneous Approach (ICD-10-PCS; 2020-02-21)
PROC: 5A12012 Performance of Cardiac Output, Single, Manual (ICD-10-PCS; 2020-02-23)
DX: U07.1 COVID-19 (principal); J12.82 Pneumonia due to coronavirus disease 2019; E43 Unspecified severe protein-calorie malnutrition; J96.01 Acute respiratory failure with hypoxia; N18.6 End stage renal disease; Z99.2 Dependence on renal dialysis; I13.2 Hypertensive heart and chronic kidney disease with heart failure and with stage 5 chronic kidney disease, or end stage renal disease; E11.22 Type 2 diabetes mellitus with diabetic chronic kidney disease; D69.6 Thrombocytopenia, unspecified; E66.9 Obesity, unspecified; E78.5 Hyperlipidemia, unspecified; I25.10 Atherosclerotic heart disease of native coronary artery without angina pectoris; J98.11 Atelectasis; Z87.442 Personal history of urinary calculi; E88.09 Other disorders of plasma-protein metabolism, not elsewhere classified; E11.42 Type 2 diabetes mellitus with diabetic polyneuropathy; Z68.27 Body mass index [BMI] 27.0-27.9, adult; D63.1 Anemia in chronic kidney disease; D50.0 Iron deficiency anemia secondary to blood loss (chronic); I70.0 Atherosclerosis of aorta; E11.621 Type 2 diabetes mellitus with foot ulcer; L97.419 Non-pressure chronic ulcer of right heel and midfoot with unspecified severity; J91.8 Pleural effusion in other conditions classified elsewhere; Z79.84 Long term (current) use of oral hypoglycemic drugs; I50.9 Heart failure, unspecified; J44.0 Chronic obstructive pulmonary disease with (acute) lower respiratory infection; Z91.15 Patient's noncompliance with renal dialysis
CPT/HCPCS: 36415; 71045-TC; 80048-TC; 80053-TC; 80076-TC; 82728-TC; 82962-TC; 83540-TC; 83605-TC; 83880; 84155-TC; 84484-TC; 85025-TC; 85378-TC; 85730-TC; 86480; 86803; 86850-TC; 87040-TC; 87070-TC; 87081-TC; 87116; 87206; 87536; 87899; 90935-TC; 92526; 92611-TC; A6248; A6403; G0378; J0171; J0692; J0696; J0885; J1100; J1644; J2060; J3490; J7050; J7060; P9016-BL; U0003